=== PATIENT | male | born 1970 | race Two or more races ===

== ENCOUNTER 2024-08-15 15:37 | Inpatient (IN) | payer OTHER ==
[~2024-08-15] VITALS: Ht 190.5 cm; Wt 108.0 kg
[2024-08-15] MEDS: SODIUM CHLORIDE 0.9% 1,000 ML IV ONE (20:15)
[2024-08-15] MEDS: SODIUM CHLORIDE 0.9% 2,700 ML IV ONE (20:19)
[2024-08-15] MEDS: VANCOMYCIN 1.5 GM/WATER(PEG) 300 ML IV ONE (20:20)
[2024-08-15 20:34] LABS: BASOPHILS % (AUTO) 0.3 % (0.0-2.0); EOSINOPHILS % (AUTO) 0 % (1.0-6.0); HEMOGLOBIN 12.4 g/dL (13.5-17.5); LYMPHOCYTES % (AUTO) 3.4 % (22.0-44.0); MEAN CORPUSCULAR HEMOGLOBIN 29.2 pg (26.0-34.0); MEAN CORPUSCULAR HGB CONC 34.4 G/dL (31.0-37.0); MEAN CORPUSCULAR VOLUME 85 fL (80-100); MONOCYTES # (AUTO) 2.1 K/uL (0.1-1.0); MONOCYTES % (AUTO) 7.1 % (2.0-9.0); NEUTROPHILS # (AUTO) 26.2 K/uL (1.8-7.7); PLATELET COUNT (AUTO) 276 K/uL (150-450); RED BLOOD CELL COUNT(AUTO) 4.23 MIL/uL (4.50-5.90); RED CELL DISTRIBUTION WIDTH 12.8 % (11.5-14.5); WHITE BLOOD COUNT (AUTO) 29.4 K/uL (4.5-11.0)
[2024-08-15 20:37] LABS: NEUTROPHILS % (AUTO) 89.2 % (40.0-70.0)
[2024-08-15 20:41] LABS: ANION GAP 12 mmol/L (8-16); CALCIUM, TOTAL 8.8 mg/dL (8.8-10.5); CARBON DIOXIDE 24 mmol/L (22-29); CHLORIDE 88 mmol/L (98-107); GLOMERULAR FILTR. RATE CALC 53 mL/min (>60); GLUCOSE,RANDOM 371 mg/dL (70-110); UREA NITROGEN, BLOOD 33 mg/dL (7-18)
[2024-08-15 20:43] LABS: PROTHROMBIN TIME 12.1 SEC (9.4-11.6)
[2024-08-15 20:54] LABS: TROPONIN I-HIGH SENSITIVITY 8 ng/L (<76)
[2024-08-15 20:56] LABS: SODIUM SERUM 124 mmol/L (136-145)
[2024-08-15 20:57] LABS: LACTIC ACID 2.3 mmol/L (0.4-2.0)
[2024-08-15 21:06] LABS: B-TYPE NATRIURETIC PEPTIDE 137 pg/mL (0-100)
[2024-08-16] MEDS ORDERED: POTASSIUM CHLORIDE 20 MEQ ER TABLET PO ONE
[2024-08-16] MEDS: 0.9% SODIUM CHLORIDE 10 ML SYRINGE IVP PRN (00:46)
[2024-08-16 01:36] LABS: APPEARANCE,URINE CLEAR (CLEAR); BILIRUBIN,URINE NEGATIVE (NEGATIVE); COLOR,URINE LIGHT YELLOW (YELLOW); GLUCOSE, URINE (UA) >=1000 mg/dL (NEGATIVE); KETONES,URINE 40-60 mg/dL (NEGATIVE); LEUKOCYTE ESTERASE ,URINE NEGATIVE (NEGATIVE); NITRATE,URINE NEGATIVE (NEGATIVE); OCCULT BLOOD,URINE NEGATIVE (NEGATIVE); PH,URINE 5.5 (5.0-8.0); PROTEIN,URINE TRACE mg/dL (NEGATIVE); SPECIFIC GRAVITIY, URINE 1.027 (1.003-1.030); UROBILINOGEN,URINE <=1.0 mg/dL (<=1.0)
[2024-08-16 01:41] LABS: BACTERIA,URINE None Seen /HPF (None Seen); RBC,URINE None Seen /HPF (0-2); SQUAMOUS EPITHELIAL CELL,UR Few /LPF (None Seen); WBC,URINE None Seen /HPF (0-5)
[2024-08-16 04:00] VITALS: BP 127/60; PULSE 84; RESP 20; TEMP 99.5; O2SAT 95
[2024-08-16] MEDS ORDERED: MAGNESIUM HYDROXIDE SUSPENSION 30 ML UDCUP PO PRN (05:15)
[2024-08-16] MEDS ORDERED: ONDANSETRON HCL 4 MG/2 ML VIAL IVP PRN (05:15)
[2024-08-16] MEDS ORDERED: BISACODYL 10 MG RECTAL RECTAL SUPPOSITORY PR PRN (05:15)
[2024-08-16] MEDS ORDERED: ZOLPIDEM TARTRATE 5 MG TABLET PO PRN (05:15)
[2024-08-16] MEDS: SODIUM CHLORIDE 0.9% 1,000 ML IV ONE (05:55)
[2024-08-16 07:18] LABS: HEMATOCRIT 32.5 % (41-53); HEMOGLOBIN 11.3 g/dL (13.5-17.5); MEAN CORPUSCULAR HEMOGLOBIN 29.2 pg (26.0-34.0); MEAN CORPUSCULAR HGB CONC 34.8 G/dL (31.0-37.0); MEAN CORPUSCULAR VOLUME 84 fL (80-100); PLATELET COUNT (AUTO) 272 K/uL (150-450); RED BLOOD CELL COUNT(AUTO) 3.87 MIL/uL (4.50-5.90); RED CELL DISTRIBUTION WIDTH 12.8 % (11.5-14.5); WHITE BLOOD COUNT (AUTO) 27.7 K/uL (4.5-11.0)
[2024-08-16 07:29] LABS: ANION GAP 9 mmol/L (8-16); CALCIUM, TOTAL 8.3 mg/dL (8.8-10.5); CARBON DIOXIDE 23 mmol/L (22-29); CHLORIDE 95 mmol/L (98-107); CREATININE 0.98 mg/dL (0.60-1.30); GLOMERULAR FILTR. RATE CALC > 60 mL/min (>60); GLUCOSE,RANDOM 298 mg/dL (70-110); SODIUM SERUM 127 mmol/L (136-145); UREA NITROGEN, BLOOD 25 mg/dL (7-18)
[2024-08-16] MEDS: HEPARIN SODIUM,PORCINE 5,000 UNITS/ML VIAL SQ SCH (08:00)
[2024-08-16] MEDS: VANCOMYCIN 1GM/WATER(PEG/NADA) 200 ML IV SCH ×2 (08:00→15:22)
[2024-08-16] MEDS: DOCUSATE SODIUM 100 MG CAPSULE PO SCH (08:00)
[2024-08-16 08:13] VITALS: BP 144/82; PULSE 88; RESP 18; TEMP 99.2
[2024-08-16 08:52] LABS: BAND NEUTROPHILS % (MANUAL) 7 % (0-5); LYMPHOCYTES % (MANUAL) 29 % (22-44); MONOCYTES % (MANUAL) 4 % (2-9); RBC MORPHOLOGY COMMENT NORMAL RBC MORPH; SEGMENTED NEUTROPHILS % 60 % (40-70); TOTAL CELLS COUNTED 100
[2024-08-16] MEDS: PANTOPRAZOLE SODIUM 40 MG DR TABLET PO SCH (09:00)
[2024-08-16] MEDS: HYDROCODONE/ACETAMINOPHEN 5-325 MG TABLET PO PRN (15:29)
[2024-08-16] MEDS ORDERED: DEXTROSE 50%-WATER 25 GM/50 ML SYRINGE IVP PRN (17:30)
[2024-08-16] MEDS: INSULIN LISPRO 100 UNITS/ML SQ ONE (17:38)
[2024-08-16] MEDS: INSULIN LISPRO 100 UNITS/ML SQ PRN (17:38)
[2024-08-16 18:51] LABS: GLUCOMETER DEV NAME(LOC) 6S.1D; GLUCOSE,POINT OF CARE 432 MG/DL (70-110)
[2024-08-16 19:35] VITALS: BP 130/78; PULSE 86; RESP 18; TEMP 99.5; O2SAT 94
[2024-08-17] MEDS ORDERED: SODIUM CHLORIDE 0.9% 500 ML IV ONE (00:34)
[2024-08-17 01:36] LABS: GLUCOMETER DEV NAME(LOC) 6S.2; GLUCOSE,POINT OF CARE 323 MG/DL (70-110)
[2024-08-17 04:50] VITALS: BP 116/59; PULSE 78; RESP 18; TEMP 98.8; O2SAT 94
[2024-08-17 06:50] LABS: ANION GAP 8 mmol/L (8-16); CARBON DIOXIDE 25 mmol/L (22-29); CHLORIDE 97 mmol/L (98-107); CREATININE 0.85 mg/dL (0.60-1.30); GLOMERULAR FILTR. RATE CALC > 60 mL/min (>60); GLUCOSE,RANDOM 268 mg/dL (70-110); POTASSIUM 4.1 mmol/L (3.5-5.1); SODIUM SERUM 130 mmol/L (136-145); UREA NITROGEN, BLOOD 21 mg/dL (7-18); VANCOMYCIN,RANDOM 11.2 mcg/mL (25.0-50.0)
[2024-08-17 07:32] VITALS: BP 159/87; PULSE 82; RESP 18; TEMP 98.3; O2SAT 95
[2024-08-17] MEDS: VANCOMYCIN 1.25 GM/WATER(PEG) 250 ML IV SCH (08:18)
[2024-08-17 09:05] LABS: GLUCOMETER DEV NAME(LOC) 6N.2B; GLUCOSE,POINT OF CARE 280 MG/DL (70-110)
[2024-08-17] MEDS: PIPERACILLIN/TAZO 3.375 GM/D5W 50 ML IV SCH (11:08)
[2024-08-17 12:06] LABS: BASOPHILS % (AUTO) 0.3 % (0.0-2.0); EOSINOPHILS % (AUTO) 0.6 % (1.0-6.0); HEMATOCRIT 34.4 % (41-53); HEMOGLOBIN 11.5 g/dL (13.5-17.5); LYMPHOCYTES % (AUTO) 4.7 % (22.0-44.0); MEAN CORPUSCULAR HEMOGLOBIN 28.7 pg (26.0-34.0); MEAN CORPUSCULAR HGB CONC 33.5 G/dL (31.0-37.0); MEAN CORPUSCULAR VOLUME 86 fL (80-100); MONOCYTES # (AUTO) 1.5 K/uL (0.1-1.0); MONOCYTES % (AUTO) 7.2 % (2.0-9.0); NEUTROPHILS # (AUTO) 17.9 K/uL (1.8-7.7); PLATELET COUNT (AUTO) 351 K/uL (150-450); RED BLOOD CELL COUNT(AUTO) 4.02 MIL/uL (4.50-5.90); RED CELL DISTRIBUTION WIDTH 12.9 % (11.5-14.5); WHITE BLOOD COUNT (AUTO) 20.5 K/uL (4.5-11.0)
[2024-08-17 12:07] LABS: NEUTROPHILS % (AUTO) 87.2 % (40.0-70.0)
[2024-08-17] MEDS ORDERED: SODIUM CL IRRIG SOLN BOTTLE 250 ML IRRIG ONE (12:55)
[2024-08-17 14:00] LABS: GLUCOMETER DEV NAME(LOC) 6S.1D; GLUCOSE,POINT OF CARE 370 MG/DL (70-110)
[2024-08-17 17:15] LABS: GLUCOMETER DEV NAME(LOC) 6S.2; GLUCOSE,POINT OF CARE 290 MG/DL (70-110)
[2024-08-17 19:45] VITALS: BP 160/89; PULSE 91; RESP 18; TEMP 98.3; O2SAT 94
[2024-08-18 05:28] VITALS: BP 150/76; PULSE 87; RESP 16; TEMP 98.6; O2SAT 93
[2024-08-18 05:40] LABS: GLUCOMETER DEV NAME(LOC) 6S.2; GLUCOSE,POINT OF CARE 341 MG/DL (70-110)
[2024-08-18 06:50] LABS: BASOPHILS % (AUTO) 0.2 % (0.0-2.0); EOSINOPHILS % (AUTO) 0.7 % (1.0-6.0); HEMATOCRIT 34.3 % (41-53); HEMOGLOBIN 11.4 g/dL (13.5-17.5); LYMPHOCYTES # (AUTO) 1.1 K/uL (1.0-4.8); LYMPHOCYTES % (AUTO) 5.6 % (22.0-44.0); MEAN CORPUSCULAR HEMOGLOBIN 28.4 pg (26.0-34.0); MEAN CORPUSCULAR HGB CONC 33.3 G/dL (31.0-37.0); MEAN CORPUSCULAR VOLUME 85 fL (80-100); MONOCYTES # (AUTO) 1.6 K/uL (0.1-1.0); MONOCYTES % (AUTO) 8.2 % (2.0-9.0); NEUTROPHILS # (AUTO) 16.7 K/uL (1.8-7.7); PLATELET COUNT (AUTO) 382 K/uL (150-450); RED BLOOD CELL COUNT(AUTO) 4.03 MIL/uL (4.50-5.90); RED CELL DISTRIBUTION WIDTH 12.7 % (11.5-14.5); WHITE BLOOD COUNT (AUTO) 19.6 K/uL (4.5-11.0)
[2024-08-18 06:59] LABS: NEUTROPHILS % (AUTO) 85.3 % (40.0-70.0)
[2024-08-18 07:02] LABS: ANION GAP 9 mmol/L (8-16); CALCIUM, TOTAL 8.1 mg/dL (8.8-10.5); CARBON DIOXIDE 24 mmol/L (22-29); CHLORIDE 97 mmol/L (98-107); CREATININE 0.81 mg/dL (0.60-1.30); GLOMERULAR FILTR. RATE CALC > 60 mL/min (>60); GLUCOSE,RANDOM 291 mg/dL (70-110); POTASSIUM 3.9 mmol/L (3.5-5.1); SODIUM SERUM 130 mmol/L (136-145); UREA NITROGEN, BLOOD 16 mg/dL (7-18)
[2024-08-18 08:35] LABS: GLUCOMETER DEV NAME(LOC) 6S.2; GLUCOSE,POINT OF CARE 321 MG/DL (70-110)
[2024-08-18 08:55] VITALS: BP 122/66; PULSE 90; RESP 18; TEMP 98.2; O2SAT 97
[2024-08-18] MEDS: ACETAMINOPHEN 325 MG TABLET PO PRN (08:55)
[2024-08-18 19:20] VITALS: BP 152/74; PULSE 81; RESP 19; TEMP 98.3; O2SAT 98
[2024-08-18 19:45] LABS: GLUCOMETER DEV NAME(LOC) 6S.2; GLUCOSE,POINT OF CARE 336 MG/DL (70-110)
[2024-08-18 19:46] LABS: GLUCOMETER DEV NAME(LOC) 6N.2B; GLUCOSE,POINT OF CARE 287 MG/DL (70-110)
[2024-08-19 00:06] LABS: HEPATITIS C AB (EIA) Non Reactive (Non Reactive)
[2024-08-19 04:20] VITALS: BP 153/68; PULSE 80; RESP 18; TEMP 98.3; O2SAT 94
[2024-08-19 06:44] LABS: BASOPHILS % (AUTO) 0.3 % (0.0-2.0); EOSINOPHILS % (AUTO) 1.3 % (1.0-6.0); HEMATOCRIT 32.4 % (41-53); HEMOGLOBIN 10.9 g/dL (13.5-17.5); LYMPHOCYTES # (AUTO) 1.3 K/uL (1.0-4.8); MEAN CORPUSCULAR HEMOGLOBIN 28.4 pg (26.0-34.0); MEAN CORPUSCULAR HGB CONC 33.5 G/dL (31.0-37.0); MEAN CORPUSCULAR VOLUME 85 fL (80-100); MONOCYTES # (AUTO) 1.4 K/uL (0.1-1.0); MONOCYTES % (AUTO) 7.2 % (2.0-9.0); NEUTROPHILS # (AUTO) 15.9 K/uL (1.8-7.7); NEUTROPHILS % (AUTO) 84.2 % (40.0-70.0); PLATELET COUNT (AUTO) 448 K/uL (150-450); RED BLOOD CELL COUNT(AUTO) 3.82 MIL/uL (4.50-5.90); RED CELL DISTRIBUTION WIDTH 12.7 % (11.5-14.5); WHITE BLOOD COUNT (AUTO) 18.9 K/uL (4.5-11.0)
[2024-08-19 06:46] LABS: GLUCOMETER DEV NAME(LOC) 6N.2B; GLUCOSE,POINT OF CARE 295 MG/DL (70-110)
[2024-08-19 06:46] LABS: GLUCOMETER DEV NAME(LOC) 6S.2; GLUCOSE,POINT OF CARE 295 MG/DL (70-110)
[2024-08-19 07:03] LABS: ANION GAP 7 mmol/L (8-16); CALCIUM, TOTAL 7.9 mg/dL (8.8-10.5); CARBON DIOXIDE 26 mmol/L (22-29); CHLORIDE 97 mmol/L (98-107); CREATININE 0.87 mg/dL (0.60-1.30); GLOMERULAR FILTR. RATE CALC > 60 mL/min (>60); GLUCOSE,RANDOM 282 mg/dL (70-110); POTASSIUM 4.1 mmol/L (3.5-5.1); SODIUM SERUM 130 mmol/L (136-145); UREA NITROGEN, BLOOD 15 mg/dL (7-18)
[2024-08-19 08:06] VITALS: BP 106/50; PULSE 75; RESP 16; TEMP 98.7; O2SAT 97
[2024-08-19 08:40] VITALS: BP 112/67; PULSE 88; RESP 18; TEMP 98; O2SAT 95
[2024-08-19 16:01] VITALS: BP 126/59; PULSE 85; RESP 17; TEMP 98.1; O2SAT 94
[2024-08-19 19:31] VITALS: BP 143/75; PULSE 83; RESP 20; TEMP 98.9; O2SAT 95
[2024-08-20 00:06] LABS: GLUCOMETER DEV NAME(LOC) 6N.2B; GLUCOSE,POINT OF CARE 347 MG/DL (70-110)
[2024-08-20 00:06] LABS: GLUCOMETER DEV NAME(LOC) 6N.2B; GLUCOSE,POINT OF CARE 311 MG/DL (70-110)
[2024-08-20 00:10] LABS: GLUCOMETER DEV NAME(LOC) 6S.1D; GLUCOSE,POINT OF CARE 316 MG/DL (70-110)
[2024-08-20 05:00] VITALS: BP 136/66; PULSE 81; RESP 16; TEMP 98.3; O2SAT 95
[2024-08-20 07:12] VITALS: BP 148/80; PULSE 82; RESP 20; TEMP 97.7; O2SAT 94
[2024-08-20 07:37] LABS: BASOPHILS % (AUTO) 0.6 % (0.0-2.0); EOSINOPHILS % (AUTO) 1.2 % (1.0-6.0); HEMATOCRIT 32.8 % (41-53); HEMOGLOBIN 11.1 g/dL (13.5-17.5); LYMPHOCYTES # (AUTO) 1.3 K/uL (1.0-4.8); LYMPHOCYTES % (AUTO) 8.1 % (22.0-44.0); MEAN CORPUSCULAR HEMOGLOBIN 28.6 pg (26.0-34.0); MEAN CORPUSCULAR HGB CONC 33.8 G/dL (31.0-37.0); MEAN CORPUSCULAR VOLUME 85 fL (80-100); MONOCYTES # (AUTO) 0.9 K/uL (0.1-1.0); MONOCYTES % (AUTO) 5.8 % (2.0-9.0); NEUTROPHILS # (AUTO) 13.3 K/uL (1.8-7.7); NEUTROPHILS % (AUTO) 84.3 % (40.0-70.0); PLATELET COUNT (AUTO) 504 K/uL (150-450); RED BLOOD CELL COUNT(AUTO) 3.88 MIL/uL (4.50-5.90); RED CELL DISTRIBUTION WIDTH 12.9 % (11.5-14.5); WHITE BLOOD COUNT (AUTO) 15.8 K/uL (4.5-11.0)
[2024-08-20 07:53] LABS: ANION GAP 7 mmol/L (8-16); CARBON DIOXIDE 28 mmol/L (22-29); CHLORIDE 95 mmol/L (98-107); GLOMERULAR FILTR. RATE CALC > 60 mL/min (>60); GLUCOSE,RANDOM 273 mg/dL (70-110); POTASSIUM 4.4 mmol/L (3.5-5.1); SODIUM SERUM 130 mmol/L (136-145); UREA NITROGEN, BLOOD 13 mg/dL (7-18)
[2024-08-20 12:01] LABS: GLUCOMETER DEV NAME(LOC) 6S.2; GLUCOSE,POINT OF CARE 307 MG/DL (70-110)
[2024-08-20 15:36] VITALS: BP 158/77; PULSE 81; RESP 20; TEMP 98.4; O2SAT 95
[2024-08-20 20:15] VITALS: BP 143/84; PULSE 79; RESP 19; TEMP 98.2; O2SAT 95
[2024-08-21 04:44] VITALS: BP 131/62; PULSE 77; RESP 20; TEMP 98.4; O2SAT 99
[2024-08-21 05:01] LABS: GLUCOMETER DEV NAME(LOC) 6N.2B; GLUCOSE,POINT OF CARE 332 MG/DL (70-110)
[2024-08-21 08:11] LABS: ANION GAP 6 mmol/L (8-16); CALCIUM, TOTAL 7.8 mg/dL (8.8-10.5); CARBON DIOXIDE 28 mmol/L (22-29); CHLORIDE 95 mmol/L (98-107); CREATININE 0.86 mg/dL (0.60-1.30); GLOMERULAR FILTR. RATE CALC > 60 mL/min (>60); GLUCOSE,RANDOM 286 mg/dL (70-110); SODIUM SERUM 129 mmol/L (136-145); UREA NITROGEN, BLOOD 10 mg/dL (7-18)
[2024-08-21 08:42] VITALS: BP 143/76; PULSE 89; RESP 18; TEMP 97.9; O2SAT 96
[2024-08-21] MEDS ORDERED: SODIUM CL IRRIG SOLN BOTTLE 250 ML IRRIG ONE (13:50)
[2024-08-21] MEDS: MORPHINE SULFATE 2 MG/ML SYRINGE IVP PRN (13:57)
[2024-08-21] MEDS: INSULIN GLARGINE,HUM.REC.ANLOG 100 UNITS/ML SQ ONE (15:51)
[2024-08-21 16:46] LABS: GLUCOMETER DEV NAME(LOC) 6N.2B; GLUCOSE,POINT OF CARE 292 MG/DL (70-110)
[2024-08-21 16:46] LABS: GLUCOMETER DEV NAME(LOC) 6S.2; GLUCOSE,POINT OF CARE 342 MG/DL (70-110)
[2024-08-21 16:47] VITALS: BP 141/76; PULSE 80; RESP 18; TEMP 98; O2SAT 99
[2024-08-21 19:31] LABS: GLUCOMETER DEV NAME(LOC) 6S.2; GLUCOSE,POINT OF CARE 335 MG/DL (70-110)
== END 2024-08-21 17:50 | DRG 682 ==
LOC: EMS 15:37 → EDH 08-16 00:16 → 6S 08-16 02:34
PROVIDERS: ADMIT Internal Medicine; ATTEND Internal Medicine
DX: N17.0 Acute kidney failure with tubular necrosis (principal); R65.11 Systemic inflammatory response syndrome (SIRS) of non-infectious origin with acute organ dysfunction; E87.1 Hypo-osmolality and hyponatremia; L03.115 Cellulitis of right lower limb; L02.415 Cutaneous abscess of right lower limb; I10 Essential (primary) hypertension; E11.65 Type 2 diabetes mellitus with hyperglycemia; S81.801A Unspecified open wound, right lower leg, initial encounter; X58.XXXA Exposure to other specified factors, initial encounter; Y93.89 Activity, other specified; Y92.89 Other specified places as the place of occurrence of the external cause; Y99.8 Other external cause status
CPT/HCPCS: 71045; 73700; 80048; 80202; 81001; 82962; 83036; 83605; 83880; 84145; 84484; 85007; 85025; 85027; 85610; 86803; 87040; 87070; 87077; 87205; 87340; 93005; 93971; 99285; J1644; J1815; J2270; J2543; J7030; J7040; 36415-L1; 36415-TC

== ENCOUNTER 2025-01-03 11:46 | Inpatient (IN) | payer OTHER ==
[~2025-01-03] VITALS: Ht 177.8 cm; Wt 100.0 kg
[~2025-01-03 11:46] MED LIST: ACET-2247 PO; ALBU2.5V39 NEB; ATOR10TA PO; ERYT3.5O8 OU; INSNPH SQ; INSREG SQ; LOSA-382 PO; MAGN-169 PO; PANT-31 PO; POLY10DR5 OU; SULF-261 PO
[2025-01-03 12:15] LABS: GLUCOMETER DEV NAME(LOC) ERT.7; GLUCOSE,POINT OF CARE 272 MG/DL (70-110)
[2025-01-03] MEDS: VANCOMYCIN 1.25 GM/WATER(PEG) 250 ML IV ONE (12:20)
[2025-01-03 12:28] LABS: ANION GAP 6 mmol/L (8-16); CALCIUM, TOTAL 8.6 mg/dL (8.8-10.5); CARBON DIOXIDE 29 mmol/L (22-29); CHLORIDE 98 mmol/L (98-107); CREATININE 0.69 mg/dL (0.60-1.30); GLOMERULAR FILTR. RATE CALC > 60 mL/min (>60); GLUCOSE,RANDOM 272 mg/dL (70-110); POTASSIUM 3.9 mmol/L (3.5-5.1); SODIUM SERUM 133 mmol/L (136-145); UREA NITROGEN, BLOOD 15 mg/dL (7-18)
[2025-01-03 12:38] LABS: LACTIC ACID 1.1 mmol/L (0.4-2.0)
[2025-01-03 12:39] LABS: BASOPHILS % (AUTO) 0.9 % (0.0-2.0); HEMATOCRIT 37.9 % (41-53); HEMOGLOBIN 12.6 g/dL (13.5-17.5); LYMPHOCYTES # (AUTO) 1.6 K/uL (1.0-4.8); LYMPHOCYTES % (AUTO) 26.7 % (22.0-44.0); MEAN CORPUSCULAR HEMOGLOBIN 27.3 pg (26.0-34.0); MEAN CORPUSCULAR HGB CONC 33.4 G/dL (31.0-37.0); MEAN CORPUSCULAR VOLUME 82 fL (80-100); MONOCYTES # (AUTO) 0.5 K/uL (0.1-1.0); MONOCYTES % (AUTO) 8.7 % (2.0-9.0); NEUTROPHILS # (AUTO) 3.6 K/uL (1.8-7.7); NEUTROPHILS % (AUTO) 60.7 % (40.0-70.0); PLATELET COUNT (AUTO) 263 K/uL (150-450); RED BLOOD CELL COUNT(AUTO) 4.63 MIL/uL (4.50-5.90); RED CELL DISTRIBUTION WIDTH 13.9 % (11.5-14.5)
[2025-01-03 12:46] LABS: ALANINE AMINOTRANSFERASE 23 U/L (12-78); ALBUMIN 3.3 g/dL (3.4-5.0); ALKALINE PHOSPHATASE 125 U/L (46-116); ASPARTATE AMINOTRANSFERASE 12 U/L (15-37); BILIRUBIN,TOTAL 0.6 mg/dL (0.1-1.0); TOTAL PROTEIN, SERUM 7.2 g/dL (6.4-8.2)
[2025-01-03] MEDS ORDERED: MAGNESIUM HYDROXIDE SUSPENSION 30 ML UDCUP PO PRN (17:30)
[2025-01-03] MEDS ORDERED: MORPHINE SULFATE 2 MG/ML SYRINGE IVP PRN (17:30)
[2025-01-03] MEDS ORDERED: ONDANSETRON HCL 4 MG/2 ML VIAL IVP PRN (17:30)
[2025-01-03] MEDS ORDERED: BISACODYL 10 MG RECTAL RECTAL SUPPOSITORY PR PRN (17:30)
[2025-01-03] MEDS ORDERED: ACETAMINOPHEN 325 MG TABLET PO PRN (17:30)
[2025-01-03] MEDS ORDERED: DEXTROSE 50%-WATER 25 GM/50 ML SYRINGE IVP PRN (17:30)
[2025-01-03] MEDS ORDERED: ZOLPIDEM TARTRATE 5 MG TABLET PO PRN (17:30)
[2025-01-03] MEDS ORDERED: ALBUTEROL SULFATE 2.5 MG/0.5 ML NEB SOLUTION NEB PRN (17:30)
[2025-01-03 18:35] LABS: GLUCOMETER DEV NAME(LOC) ERT.7; GLUCOSE,POINT OF CARE 174 MG/DL (70-110)
[2025-01-03 21:00] VITALS: BP 160/93; PULSE 72; RESP 18; TEMP 97.7; O2SAT 98
[2025-01-03] MEDS ORDERED: SODIUM CHLORIDE 0.9% 500 ML IV ONE (21:52)
[2025-01-03] MEDS: ATORVASTATIN CALCIUM 10 MG TABLET PO SCH (22:01)
[2025-01-03] MEDS: DOCUSATE SODIUM 100 MG CAPSULE PO SCH (22:01)
[2025-01-03] MEDS: INSULIN NPH, HUMAN ISOPHANE 100 UNITS/ML SQ SCH (22:08)
[2025-01-03] MEDS: HYDROCODONE/ACETAMINOPHEN 5-325 MG TABLET PO PRN (22:10)
[2025-01-03] MEDS: INSULIN LISPRO 100 UNITS/ML SQ PRN (22:46)
[2025-01-03] MEDS: HEPARIN SODIUM,PORCINE 5,000 UNITS/ML VIAL SQ SCH (23:22)
[2025-01-03] MEDS: VANCOMYCIN HCL 1.25 GM in DEXTROSE 5%-WATER 250 ML IV SCH (23:26)
[2025-01-04 05:30] VITALS: BP 126/71; PULSE 69; RESP 18; TEMP 97.7; O2SAT 97
[2025-01-04 07:39] LABS: ANION GAP 6 mmol/L (8-16); CALCIUM, TOTAL 8.7 mg/dL (8.8-10.5); CARBON DIOXIDE 30 mmol/L (22-29); CHLORIDE 103 mmol/L (98-107); CREATININE 0.69 mg/dL (0.60-1.30); GLOMERULAR FILTR. RATE CALC > 60 mL/min (>60); GLUCOSE,RANDOM 78 mg/dL (70-110); POTASSIUM 3.6 mmol/L (3.5-5.1); SODIUM SERUM 139 mmol/L (136-145); UREA NITROGEN, BLOOD 15 mg/dL (7-18)
[2025-01-04 08:16] VITALS: BP 139/78; PULSE 60; RESP 18; TEMP 98.2; O2SAT 96
[2025-01-04] MEDS ORDERED: PANTOPRAZOLE SODIUM 40 MG DR TABLET PO SCH (09:00)
[2025-01-04] MEDS: PANTOPRAZOLE SODIUM 40 MG DR TABLET PO SCH (09:01)
[2025-01-04] MEDS: LOSARTAN POTASSIUM 50 MG TABLET PO SCH (09:02)
[2025-01-04 09:06] LABS: GLUCOMETER DEV NAME(LOC) 6N.2B; GLUCOSE,POINT OF CARE 117 MG/DL (70-110)
[2025-01-04 09:06] LABS: GLUCOMETER DEV NAME(LOC) 6N.2B; GLUCOSE,POINT OF CARE 289 MG/DL (70-110)
[2025-01-04 09:56] LABS: GLUCOMETER DEV NAME(LOC) 6S.1D; GLUCOSE,POINT OF CARE 80 MG/DL (70-110)
[2025-01-04] MEDS: INSULIN NPH, HUMAN ISOPHANE 100 UNITS/ML SQ SCH (10:13)
[2025-01-04 12:45] LABS: GLUCOMETER DEV NAME(LOC) 6S.1D; GLUCOSE,POINT OF CARE 134 MG/DL (70-110)
[2025-01-04 17:06] LABS: GLUCOMETER DEV NAME(LOC) 6S.2; GLUCOSE,POINT OF CARE 132 MG/DL (70-110)
[2025-01-04 19:22] VITALS: BP 134/81; PULSE 65; RESP 20; TEMP 97.9; O2SAT 95
[2025-01-04 21:06] LABS: GLUCOMETER DEV NAME(LOC) 6N.2B; GLUCOSE,POINT OF CARE 149 MG/DL (70-110)
[2025-01-04 21:10] LABS: GLUCOMETER DEV NAME(LOC) 6S.2; GLUCOSE,POINT OF CARE 140 MG/DL (70-110)
[2025-01-05 05:20] VITALS: BP 128/82; PULSE 72; RESP 20; TEMP 98.1; O2SAT 97
[2025-01-05 06:06] LABS: GLUCOMETER DEV NAME(LOC) 6S.2; GLUCOSE,POINT OF CARE 225 MG/DL (70-110)
[2025-01-05 07:00] VITALS: BP 121/62; PULSE 67; RESP 18; TEMP 97.9; O2SAT 96
[2025-01-05 08:33] LABS: ANION GAP 6 mmol/L (8-16); CALCIUM, TOTAL 8.5 mg/dL (8.8-10.5); CARBON DIOXIDE 28 mmol/L (22-29); CHLORIDE 102 mmol/L (98-107); CREATININE 0.69 mg/dL (0.60-1.30); GLOMERULAR FILTR. RATE CALC > 60 mL/min (>60); GLUCOSE,RANDOM 212 mg/dL (70-110); POTASSIUM 3.7 mmol/L (3.5-5.1); SODIUM SERUM 136 mmol/L (136-145); UREA NITROGEN, BLOOD 12 mg/dL (7-18)
[2025-01-05] MEDS: VANCOMYCIN 1.5 GM/WATER(PEG) 300 ML IV SCH (20:13)
[2025-01-05 20:20] VITALS: BP 121/69; PULSE 68; RESP 18; TEMP 98.2; O2SAT 95
[2025-01-05 21:01] LABS: GLUCOMETER DEV NAME(LOC) 6S.2; GLUCOSE,POINT OF CARE 193 MG/DL (70-110)
[2025-01-05 21:06] LABS: GLUCOMETER DEV NAME(LOC) 6N.2B; GLUCOSE,POINT OF CARE 147 MG/DL (70-110)
[2025-01-05 21:06] LABS: GLUCOMETER DEV NAME(LOC) 6N.2B; GLUCOSE,POINT OF CARE 188 MG/DL (70-110)
[2025-01-06 03:07] LABS: HEPATITIS C AB (EIA) Non Reactive (Non Reactive)
[2025-01-06 05:01] LABS: GLUCOMETER DEV NAME(LOC) 6N.2B; GLUCOSE,POINT OF CARE 96 MG/DL (70-110)
[2025-01-06 06:00] VITALS: BP 128/74; PULSE 65; RESP 16; TEMP 98.1; O2SAT 96
[2025-01-06 07:32] LABS: ANION GAP 6 mmol/L (8-16); CALCIUM, TOTAL 8.6 mg/dL (8.8-10.5); CARBON DIOXIDE 29 mmol/L (22-29); CHLORIDE 102 mmol/L (98-107); CREATININE 0.74 mg/dL (0.60-1.30); GLOMERULAR FILTR. RATE CALC > 60 mL/min (>60); GLUCOSE,RANDOM 123 mg/dL (70-110); POTASSIUM 3.7 mmol/L (3.5-5.1); SODIUM SERUM 137 mmol/L (136-145); UREA NITROGEN, BLOOD 17 mg/dL (7-18)
[2025-01-06 09:10] VITALS: BP 120/74; PULSE 65; RESP 18; TEMP 98.8; O2SAT 100
[2025-01-06 13:26] LABS: GLUCOMETER DEV NAME(LOC) 6S.1D; GLUCOSE,POINT OF CARE 139 MG/DL (70-110)
[2025-01-06 13:30] LABS: GLUCOMETER DEV NAME(LOC) 6S.2; GLUCOSE,POINT OF CARE 143 MG/DL (70-110)
[2025-01-06 17:16] VITALS: BP 126/69; PULSE 71; RESP 17; TEMP 98.6; O2SAT 99
[2025-01-06 20:06] VITALS: BP 125/76; PULSE 66; RESP 18; TEMP 97.9; O2SAT 95
[2025-01-07 05:45] VITALS: BP 131/75; PULSE 63; RESP 18; TEMP 97.7; O2SAT 97
[2025-01-07 09:16] LABS: ANION GAP 7 mmol/L (8-16); CALCIUM, TOTAL 8.9 mg/dL (8.8-10.5); CARBON DIOXIDE 28 mmol/L (22-29); CHLORIDE 102 mmol/L (98-107); CREATININE 0.75 mg/dL (0.60-1.30); GLOMERULAR FILTR. RATE CALC > 60 mL/min (>60); GLUCOSE,RANDOM 111 mg/dL (70-110); POTASSIUM 3.9 mmol/L (3.5-5.1); SODIUM SERUM 137 mmol/L (136-145); UREA NITROGEN, BLOOD 16 mg/dL (7-18)
[2025-01-07 09:25] VITALS: BP 124/73; PULSE 66; RESP 18; TEMP 98.2; O2SAT 100
[2025-01-07 09:35] LABS: GLUCOMETER DEV NAME(LOC) 6S.1D; GLUCOSE,POINT OF CARE 166 MG/DL (70-110)
[2025-01-07 09:35] LABS: GLUCOMETER DEV NAME(LOC) 6N.2B; GLUCOSE,POINT OF CARE 74 MG/DL (70-110)
[2025-01-07] MEDS ORDERED: INSU100V SQ (10:13)
[2025-01-07 10:16] LABS: GLUCOMETER DEV NAME(LOC) 6S.2; GLUCOSE,POINT OF CARE 215 MG/DL (70-110)
[2025-01-07 10:16] LABS: GLUCOMETER DEV NAME(LOC) 6S.2; GLUCOSE,POINT OF CARE 148 MG/DL (70-110)
[2025-01-07] MEDS ORDERED: AMOX-457 PO (10:16)
[2025-01-07 13:36] LABS: GLUCOMETER DEV NAME(LOC) 6S.2; GLUCOSE,POINT OF CARE 209 MG/DL (70-110)
== END 2025-01-07 12:50 | DRG 603 ==
LOC: EMS 11:48 → EDH 13:50 → 6S 20:18
PROVIDERS: ADMIT Internal Medicine; ATTEND Internal Medicine
DX: L03.115 Cellulitis of right lower limb (principal); I10 Essential (primary) hypertension; E11.40 Type 2 diabetes mellitus with diabetic neuropathy, unspecified; H10.89 Other conjunctivitis; E11.51 Type 2 diabetes mellitus with diabetic peripheral angiopathy without gangrene; I87.8 Other specified disorders of veins
CPT/HCPCS: 80048; 80076; 80202; 82962; 83605; 85025; 86803; 87040; 87070; 87186; 87205; 87340; 93925; 96365; 99285; J1644; J1815; J7040; J7060